=== PATIENT | female | born 1965 | race Caucasian/White ===

== ENCOUNTER → 2016-06-19 | Outpatient (REF) | payer BC | LOC: M LAB REF 20:09 | PROVIDERS: ATTEND Physician Assistant Medical | DX: N39.0 Urinary tract infection, site not specified (principal) ==

== ENCOUNTER → 2016-10-12 | Outpatient (CLI) | payer BC ==
--- NOTE | 2016-10-12 14:22 | REP ---
HIDA SCAN WITH GALLBLADDER EJECTION FRACTION: Following the intravenous administration of 6 mCi of technetium-99m mebrofenin, multiple images of the right upper quadrant are performed for 60 minutes. The gallbladder is visualized at 10 minutes postinjection. There is biliary to bowel transit seen at about 45 minutes postinjection with no scintigraphic evidence of cholecystitis. At the 1 hour ramon 8 ounces of Ensure Enlive was ingested and further imaging performed for 1 hour. Gallbladder ejection fraction is calculated to be 57% which is normal. IMPRESSION: No scintigraphic evidence of cholecystitis. Normal gallbladder ejection fraction. Signed by Galen Banerjee MD 10/12/2016 05:14 P
== END ==
LOC: M RAD 07:44
PROVIDERS: ATTEND Internal Medicine Cardiovascular Disease
DX: R10.11 Right upper quadrant pain (principal)

== ENCOUNTER → 2017-01-02 | Outpatient (CLI) | payer BC ==
[~2017-01-02] MED LIST: E-Z-PAQUE 96% w/w SUSP 176GM BTL As Ordered ONE
--- NOTE | 2017-01-02 16:18 | REP ---
Small bowel follow-through The procedure was performed under the direct supervision of Dr. Shah. The images were reviewed with Dr. Shah. The printing services coordinator film shows no organomegaly or pathological masses. The intestinal gas pattern is nonspecific. There is residual barium in the appendix from previous GI study. The patient is status post right L-5 lumbar laminectomy. Liquid barium was administered and the barium column was followed through the small bowel to the level of the terminal ileum. Small bowel transit time is approximately 15 minutes. During fluoroscopy gentle palpation shows all loops are freely movable and pliable. There are no fixed or angulated loops. The small bowel mucosal pattern is normal in course and caliber. There is no transition to suggest a partial small bowel obstruction. Spot filming of the terminal ileum shows it to be unremarkable. Impression: Small bowel follow-through examination within normal limits. 1 minutes and 3 seconds of fluoro time was utilized for this procedure. Reviewed by ELBA Springer 01/02/2017 03:28 PSigned by Kvng Shah MD 01/02/2017 04:08 P
== END ==
LOC: M RAD 08:22
PROVIDERS: ATTEND Physician Assistant
DX: R14.0 Abdominal distension (gaseous) (principal); R11.0 Nausea; R10.33 Periumbilical pain; R10.84 Generalized abdominal pain; K21.9 Gastro-esophageal reflux disease without esophagitis; R19.4 Change in bowel habit

== ENCOUNTER → 2017-02-08 | Outpatient (REF) | payer BC | LOC: M LAB REF 14:09 | PROVIDERS: ATTEND Physician Assistant | DX: J02.9 Acute pharyngitis, unspecified (principal) ==

== ENCOUNTER → 2017-03-08 | Outpatient (REF) | payer BC ==
[2017-03-08 14:02] LABS: MEAN CORPUSCULAR HEMOGLOBIN 29.7 pg (27.0-33.0); MEAN CORPUSCULAR HGB CONC 33.2 g/dl (32.0-36.5); MEAN CORPUSCULAR VOLUME 89.7 fl (80.0-96.0); PLATELET COUNT, AUTOMATED 248 10^3/uL (150-450); RED CELL DISTRIBUTION WIDTH 11.6 % (11.5-14.5)
[2017-03-08 14:38] LABS: ALBUMIN 3.6 GM/DL (3.2-5.2); ALBUMIN/GLOBULIN RATIO 1.03 (1.00-1.93); ALKALINE PHOSPHATASE 48 U/L (45-117); ALT/SGPT 19 U/L (12-78); ANION GAP 6 MEQ/L (8-16); AST/SGOT 12 U/L (7-37); BILIRUBIN,TOTAL 0.4 MG/DL (0.2-1.0); BLOOD UREA NITROGEN 18 MG/DL (7-18); CARBON DIOXIDE LEVEL 31 MEQ/L (21-32); CHLORIDE LEVEL 104 MEQ/L (98-107); CREATININE FOR GFR 0.71 MG/DL (0.55-1.02); GLOMERULAR FILTRATION RATE > 60.0 (>58); POTASSIUM SERUM 4.9 MEQ/L (3.5-5.1); SODIUM LEVEL 141 MEQ/L (136-145); TOTAL PROTEIN 7.1 GM/DL (6.4-8.2)
[2017-03-08 15:09] LABS: ESTRADIOL 34.4 PG/ML; LUTEINIZING HORMONE 32.9 mIU/mL; PROGESTERONE < 0.2 NG/ML
[2017-03-08 15:10] LABS: FOLLICLE STIMULATING HORMONE 54.5 mIU/mL
[2017-03-09 09:09] LABS: GLUCOSE, FASTING 70 MG/DL (70-105); WHITE BLOOD COUNT 4.9 10^3/uL (4.0-10.0)
[2017-03-12 14:25] LABS: ESTRONE SERUM 167 pg/mL (.)
== END ==
LOC: M LAB REF 13:23
PROVIDERS: ATTEND Obstetrics & Gynecology
DX: N95.1 Menopausal and female climacteric states (principal)

== ENCOUNTER 2017-03-30 07:12 | Day surgery (SDC) | payer BC ==
[~2017-03-30] VITALS: Ht 170.2 cm; Wt 59.9 kg
[~2017-03-30 07:12] MED LIST changes: -E-Z-PAQUE 96% w/w SUSP 176GM BTL As Ordered ONE; +LR 1,000 ML IV ONE; +ONDA4TAB6 PO
[2017-03-30] MEDS ORDERED: LIDOCAINE 2% INJ 100 MG/5 ML SDV (FOR ANES.) As Ordered ONE (08:12)
[2017-03-30] MEDS ORDERED: PROPOFOL 200 MG/20 ML VIAL As Ordered ONE (08:12)
[2017-03-30] MEDS ORDERED: fentaNYL 250 MCG/5 ML INJECTION (J3010) As Ordered ONE (08:12)
[2017-03-30] MEDS ORDERED: ROCURONIUM BROMIDE 50 MG/5 ML VIAL As Ordered ONE (08:12)
[2017-03-30] MEDS ORDERED: MIDAZOLAM INJ 2 MG/2 ML VIAL (J2250) As Ordered ONE (08:13)
[2017-03-30] MEDS ORDERED: dexameTHASONE 4 MG/ML 1ML VIAL (J1100) As Ordered ONE (08:40)
[2017-03-30] MEDS ORDERED: BUPIVACAINE/EPIN 0.5% 30 ML VIAL As Ordered ONE (08:41)
[2017-03-30] MEDS ORDERED: ONDANSETRON 4MG/2ML VIAL (J2405) As Ordered ONE (08:53)
[2017-03-30] MEDS ORDERED: HYDROmorphone HCL 1 MG/ML SYRINGE (J1170) As Ordered ONE (09:33)
[2017-03-30] MEDS: HYDROmorphone HCL 1 MG/ML SYRINGE (J1170) IV PRN ×5 (09:36→09:55)
[2017-03-30] MEDS ORDERED: KETOROLAC 30 MG/ML VIAL (J1885) As Ordered ONE (09:37)
[2017-03-30] MEDS ORDERED: LR 1,000 ML IV SCH (09:45)
[2017-03-30] MEDS ORDERED: ONDANSETRON 4MG/2ML VIAL (J2405) IV PRN (09:45)
[2017-03-30] MEDS ORDERED: fentaNYL 100 MCG/2 ML INJECTION (J3010) As Ordered ONE (09:45)
[2017-03-30] MEDS: fentaNYL 100 MCG/2 ML INJECTION (J3010) IV PRN ×4 (09:46→10:27)
[2017-03-30] MEDS ORDERED: MEPERIDINE INJ 25 MG/ML VIAL (J2175) As Ordered ONE (09:52)
[2017-03-30] MEDS: MEPERIDINE INJ 25 MG/ML VIAL (J2175) IV PRN ×2 (09:54→10:03)
[2017-03-30] MEDS ORDERED: NORCO, ANEXSIA 5/325MG TABLET (HYDROcodone/ACETAMINOPHEN) PO PRN (10:00)
[2017-03-30] MEDS ORDERED: KETOROLAC 30 MG/ML VIAL (J1885) IV PRN (10:00)
[2017-03-30] MEDS ORDERED: NEOSTIGMINE 10 MG/10 ML VIAL (J2710) As Ordered ONE (10:07)
[2017-03-30] MEDS ORDERED: GLYCOPYRROLATE INJ 0.2 MG/ML 2 ML VIAL As Ordered ONE (10:07)
[2017-03-30] MEDS: PERCOCET 5MG/325MG TAB PO PRN ×2 (10:20→10:56)
[2017-03-30] MEDS ORDERED: PERCOCET 5MG/325MG TAB As Ordered ONE (10:51)
[2017-03-30 16:46] VITALS: BP 122/77
--- NOTE | 2017-04-02 07:10 | RO ---
DATE OF PROCEDURE: 03/30/2017 PREOPERATIVE DIAGNOSIS: Abdominal pain. POSTOPERATIVE DIAGNOSIS: Incarcerated umbilical hernia. PROCEDURE: Diagnostic laparoscopy with laparoscopic repair of incarcerated umbilical hernia. SURGEON: Galen Crowder DO [employer]ER: None. ANESTHESIA: General. ESTIMATED BLOOD LOSS: 5 mL. COMPLICATIONS: None. INDICATIONS FOR PROCEDURE: The patient is a 51-year-old female who has had persistent abdominal pain for over 6 months, mainly periumbilically radiating outwards. She has had extensive workup with CT, MRI, MRA, upper and lower endoscopy and everything has been negative. She came to me for further evaluation. Recommendation was proceed with diagnostic laparoscopy, possible laparotomy. Risks and benefits of the procedure not limited to, but including bleeding, infection, hernia formation, damage to surrounding structures, and need for further surgery were discussed in detail with the patient. Informed consent was obtained and the procedure was planned. PROCEDURE: The patient was brought back to operating room 3. After sufficient sedation, the abdomen was sterilely prepped and draped. Next, a time out was done to confirm proper patient and proper procedure. Following that, a 5 mm incision was made in left lower quadrant, a Veress needle inserted and the abdomen was insufflated to 15 mmHg. Next, Veress needle was removed and 5 mm OptiView port was used to gain access to the abdomen. Once the abdomen was entered, the camera was inserted and the entire abdomen was examined. There were no signs of any adhesions, masses, or injury of any sort. Pictures were taken in all four quadrants. Next, another 5 mm port was placed in the left lower quadrant and a grasper was inserted. The abdomen was carefully examined again. The omentum was elevated up. There were no signs of any masses or anything below it. There was some scarring visible in the anterior abdominal wall at the level of the umbilicus with a little bit of preperitoneal fat overlying the area. After careful palpation, it appeared that there could potentially be a tiny hernia there, so the peritoneum was carefully incised in this area and the preperitoneal fat was mobilized out of the way. After doing so, this did reveal a very small, less than 5 mm, umbilical hernia with some incarcerated preperitoneal fat within it. This was all removed. After doing so, a 9 cm round Parietex mesh was placed over top of it, tacked in place with SecureStrap tacks, thus ending procedure. No transfascial sutures were placed. At the end of the procedure, the abdomen desufflated. Skin incisions were closed with #4-0 Vicryl subcuticular sutures. The abdomen cleaned and dried. Steri-Strips, 4x4 and tape were applied thus ending procedure.
== END 2017-03-30 17:00 | disposition home or self-care (01) ==
LOC: M SDC 07:12
PROVIDERS: ATTEND Surgery
DX: K42.0 Umbilical hernia with obstruction, without gangrene (principal); E03.9 Hypothyroidism, unspecified; R06.02 Shortness of breath; Z88.6 Allergy status to analgesic agent; Z91.040 Latex allergy status; Z79.899 Other long term (current) drug therapy; Z90.710 Acquired absence of both cervix and uterus
CPT/HCPCS: 49653; C1781; J1100; J1170; J1885; J2175; J2250; J2405; J2710; J3010

== ENCOUNTER → 2017-04-13 | Outpatient (REF) | payer BC ==
[~2017-04-13] MED LIST changes: -LR 1,000 ML IV ONE
== END ==
LOC: M LAB REF 13:04
PROVIDERS: ATTEND Physician Assistant Medical
DX: R30.0 Dysuria (principal)

== ENCOUNTER → 2017-06-11 | Outpatient (REF) | payer BC ==
[2017-06-13 08:07] LABS: HSV TYPE I IgG SPECIFIC <0.91 index (0.00-0.90); HSV TYPE II IgG SPECIFIC >23.60 index (0.00-0.90)
[2017-06-16 00:06] LABS: HSV IgM TYPES 1&2 1.69 Ratio (0.00-0.90)
== END ==
LOC: M LAB REF 17:12
DX: N76.0 Acute vaginitis (principal)
CPT/HCPCS: 86694; 86695

== ENCOUNTER → 2017-06-22 | Outpatient (CLI) | payer BC | LOC: M RAD 07:23 | DX: K42.0 Umbilical hernia with obstruction, without gangrene (principal); S39.011A Strain of muscle, fascia and tendon of abdomen, initial encounter; X58.XXXA Exposure to other specified factors, initial encounter; Y92.89 Other specified places as the place of occurrence of the external cause | CPT/HCPCS: 76705 ==

== ENCOUNTER → 2017-07-12 | Outpatient (CLI) | payer BC ==
[~2017-07-12] MED LIST changes: +GLUCAGON FOR INJ 1 MG VIAL (J1610) As Ordered; +ISOVUE-370 76% 100ML VIAL (Q9967) As Ordered; -ONDA4TAB6 PO; +VoLumen 0.1% SUSPENSION 450ML BOTTLE As Ordered
== END ==
LOC: M RAD 07:46
DX: S39.011A Strain of muscle, fascia and tendon of abdomen, initial encounter (principal); Z98.890 Other specified postprocedural states; M43.07 Spondylolysis, lumbosacral region
CPT/HCPCS: Q9967

== ENCOUNTER → 2017-11-07 | Outpatient (REF) | payer BC ==
[2017-11-07 13:17] LABS: AMORPHOUS SEDIMENT SMALL (NEGATIVE); APPEARANCE, URINE CLOUDY (CLEAR); BACTERIA, URINE AUTO 1+ (NEGATIVE); BILIRUBIN, URINE AUTO NEGATIVE (NEGATIVE); BLOOD, URINE BLOOD NEGATIVE (NEGATIVE); COLOR, URINE YELLOW (YELLOW); GLUCOSE, URINE (UA) AUTO NEGATIVE (NEGATIVE); KETONE, URINE AUTO NEGATIVE (NEGATIVE); LEUKOCYTE ESTERASE, URINE AUTO NEGATIVE (NEGATIVE); NITRITE, URINE AUTO NEGATIVE (NEGATIVE); PROTEIN, URINE AUTO NEGATIVE (NEGATIVE); RBC, URINE AUTO 1 /HPF (0-3); SPECIFIC GRAVITY URINE AUTO 1.011 (1.002-1.035); SQUAMOUS EPITHELIAL CELL UR AU 0 /HPF (0-6); UROBILINOGEN, URINE AUTO 0.2 mg/dL (0.0-2.0); WBC, URINE AUTO 0 /HPF (0-3)
== END ==
LOC: M SMT 13:00
DX: R35.0 Frequency of micturition (principal)
CPT/HCPCS: 81001

== ENCOUNTER 2018-07-18 08:00 | Outpatient (RCR) | payer BC ==
[~2018-07-18 08:00] MED LIST changes: -GLUCAGON FOR INJ 1 MG VIAL (J1610) As Ordered; -ISOVUE-370 76% 100ML VIAL (Q9967) As Ordered; +ONDA4TAB6 PO; -VoLumen 0.1% SUSPENSION 450ML BOTTLE As Ordered
== END 2018-07-21 ==
LOC: M PT 08:00
PROVIDERS: ATTEND Orthopaedic Surgery Orthopaedic Surgery of the Spine
DX: R51 Headache (principal); M54.2 Cervicalgia

== ENCOUNTER 2018-08-14 08:00 | Outpatient (RCR) | payer BC | END 2018-08-20 | LOC: M PT 08:00 | PROVIDERS: ATTEND Orthopaedic Surgery Orthopaedic Surgery of the Spine | DX: R51 Headache (principal); M54.2 Cervicalgia ==

== ENCOUNTER → 2018-11-18 | Outpatient (CLI) | payer BC ==
--- NOTE | 2018-11-18 11:15 | REP ---
Clinical: Abdominal pain. Technique: Supine and upright views of the abdomen and pelvis with upright view of the chest. Findings: Frontal view of the chest is unremarkable. No free air below diaphragm to suspect pneumoperitoneum. Supine upright views of the abdomen and pelvis demonstrate nonspecific bowel gas pattern. No organomegaly. No abnormal calcifications. Incidental phleboliths noted in the pelvis. Skeletal structures demonstrate degenerative changes involving the lower lumbar spine. Impression: Nonspecific bowel gas pattern. Electronically Signed by Gunnar Ramires MD 11/18/2018 11:07 A
== END ==
LOC: M WUC 10:46
PROVIDERS: ATTEND Internal Medicine
DX: R10.9 Unspecified abdominal pain (principal)

== ENCOUNTER → 2019-01-04 | Outpatient (REF) | payer BC | LOC: M LAB 09:55 | PROVIDERS: ATTEND Physician Assistant | DX: R10.9 Unspecified abdominal pain (principal) ==

== ENCOUNTER → 2019-01-22 | Outpatient (REF) | payer BC ==
[2019-01-22 22:37] LABS: APPEARANCE, URINE CLEAR (CLEAR); BACTERIA, URINE AUTO 1+ (NEGATIVE); BILIRUBIN, URINE AUTO NEGATIVE (NEGATIVE); BLOOD, URINE BLOOD NEGATIVE (NEGATIVE); COLOR, URINE YELLOW (YELLOW); GLUCOSE, URINE (UA) AUTO NEGATIVE (NEGATIVE); KETONE, URINE AUTO NEGATIVE (NEGATIVE); LEUKOCYTE ESTERASE, URINE AUTO NEGATIVE (NEGATIVE); MUCUS, URINE SMALL (NEGATIVE); NITRITE, URINE AUTO NEGATIVE (NEGATIVE); PROTEIN, URINE AUTO NEGATIVE (NEGATIVE); RBC, URINE AUTO 0 /HPF (0-3); SPECIFIC GRAVITY URINE AUTO 1.021 (1.002-1.035); SQUAMOUS EPITHELIAL CELL UR AU 4 /HPF (0-6); UROBILINOGEN, URINE AUTO 0.2 mg/dL (0.0-2.0); WBC, URINE AUTO 0 /HPF (0-3)
== END ==
LOC: M LAB REF 12:40
PROVIDERS: ATTEND Physician Assistant
DX: N39.0 Urinary tract infection, site not specified (principal)

== ENCOUNTER → 2019-02-12 | Outpatient (CLI) | payer BC ==
[~2019-02-12] MED LIST changes: +PROHANCE 279.3MG/ML 15ML VIAL (A9576) As Ordered ONE
--- NOTE | 2019-02-13 15:26 | REP ---
MRCP: Multiple sequences obtained in the axial and coronal planes with MIP reconstruction images. Correlation made with prior MRI from [facility] 03/30/2016 as well as MRI of the pancreas performed the same day. The gallbladder demonstrates no filling defect or gallbladder wall edema. There is no intrahepatic or extrahepatic biliary dilatation. The common bile duct is normal in caliber with a maximum diameter of 4 mm. There is no evidence of choledocholithiasis or stricture. Pancreatic duct is normal in caliber. Incidental note is made of subcentimeter cyst in the left lobe of the liver just above the confluence of the hepatic veins. Subcentimeter cyst in the body of the pancreas is also seen. IMPRESSION: No biliary abnormality. Electronically Signed by Galen Banerjee MD 02/15/2019 10:57 A
--- NOTE | 2019-02-13 15:40 | REP ---
MRI PANCREAS WITH AND WITHOUT CONTRAST: HISTORY: Pancreatic abnormality. COMPARISON: [facility] 07/12/2017 and MRI [facility] 03/30/2016. Other CT examinations are also available for comparison dating back to 08/24/2009. There is an oval cyst seen in the body of the pancreas. It measures approximately 8 x 6 x 9 mm. On the prior MRI of 03/30/2016 it measured approximately 5 x 5 x 7 mm. It is therefore minimally increased in size. There does appear to be a thin internal septation, but this does not enhance. There is no associated enhancement of any portion of the cyst and no internal solid component is seen. There is no associated pancreatic ductal dilatation. There is no definite communication with the pancreatic duct. No other pancreatic cyst is seen. Gallbladder is grossly unremarkable with no filling defect. There is no intrahepatic or extrahepatic biliary dilatation. There is a subcentimeter cyst in the left lobe of the liver just above the confluence of the hepatic veins. A subcentimeter cyst is seen in the right kidney. I see no adenopathy or free fluid in the visualized abdomen. IMPRESSION: Slight increase in size of cyst in the body of the pancreas since 03/30/16 as discussed in detail above. There is a thin internal nonenhancing septation with no solid or enhancing components. There is no associated pancreatic ductal dilatation. No other pancreatic cyst is seen. The findings are not currently worrisome and I would recommend followup MRI in one year. Electronically Signed by Galen Banerjee MD 02/15/2019 10:59 A
== END ==
LOC: M RAD 07:45
PROVIDERS: ATTEND Internal Medicine
DX: Q45.3 Other congenital malformations of pancreas and pancreatic duct (principal); K86.2 Cyst of pancreas; K76.89 Other specified diseases of liver
CPT/HCPCS: 74181; 74183; A9576

== ENCOUNTER → 2019-05-31 | Outpatient (REF) | payer BC ==
[~2019-05-31] MED LIST changes: -PROHANCE 279.3MG/ML 15ML VIAL (A9576) As Ordered ONE
[2019-05-31 20:01] LABS: APPEARANCE, URINE CLEAR (CLEAR); BACTERIA, URINE AUTO NEGATIVE (NEGATIVE); BILIRUBIN, URINE AUTO NEGATIVE (NEGATIVE); BLOOD, URINE BLOOD NEGATIVE (NEGATIVE); COLOR, URINE YELLOW (YELLOW); GLUCOSE, URINE (UA) AUTO NEGATIVE (NEGATIVE); KETONE, URINE AUTO NEGATIVE (NEGATIVE); LEUKOCYTE ESTERASE, URINE AUTO NEGATIVE (NEGATIVE); MUCUS, URINE SMALL (NEGATIVE); NITRITE, URINE AUTO NEGATIVE (NEGATIVE); PROTEIN, URINE AUTO NEGATIVE (NEGATIVE); RBC, URINE AUTO 1 /HPF (0-3); SQUAMOUS EPITHELIAL CELL UR AU 1 /HPF (0-6); UROBILINOGEN, URINE AUTO 0.2 mg/dL (0.0-2.0); WBC, URINE AUTO 0 /HPF (0-3)
== END ==
LOC: M LAB REF 19:42
PROVIDERS: ATTEND Physician Assistant Medical
DX: N39.0 Urinary tract infection, site not specified (principal)

== ENCOUNTER → 2019-06-24 | Outpatient (REF) | payer BC ==
[2019-06-24 20:20] LABS: INFLUENZA A AMPLIFICATION NEGATIVE (NEGATIVE); INFLUENZA B AMPLIFICATION NEGATIVE (NEGATIVE)
== END ==
LOC: M LAB REF 09:43
PROVIDERS: ATTEND Physician Assistant
DX: J11.1 Influenza due to unidentified influenza virus with other respiratory manifestations (principal)

== ENCOUNTER → 2019-11-18 | Outpatient (CLI) | payer BC ==
[2019-12-26 15:22] LABS: TESTOSTERONE FREE (DIRECT) See Separate Report PG/ML; TESTOSTERONE TOTAL FOR T&D See Separate Report NG/DL
== END ==
LOC: M LAB 10:43
PROVIDERS: ATTEND Obstetrics & Gynecology
DX: N95.1 Menopausal and female climacteric states (principal); E34.9 Endocrine disorder, unspecified; F52.0 Hypoactive sexual desire disorder

== ENCOUNTER → 2019-12-24 | Outpatient (CLI) | payer BC ==
--- NOTE | 2020-01-20 13:14 | REP ---
LIMITED ABDOMINAL ULTRASOUND CLINICAL: Periumbilical pain. TECHNIQUE: Real-time linder scale and color Doppler evaluation using curved array transducer. FINDINGS: Liver is normal in contour, size, and echogenicity without focal hepatic lesion identified. The pancreas demonstrates an 8.5 mm cyst in the body of the pancreas. The gallbladder appears partially contracted without obvious gallstones or wall thickening. No pericholecystic fluid or sonographic Laona sign. No biliary ductal dilatation is appreciated and the bile common bile duct measures 2.4 mm in diameter. The right kidney is normal in reniform shape without hydronephrosis and measures 10.1 x 4.9 x 4.8 cm. Further evaluation of the periumbilical region demonstrates no obvious hernia or abnormality. IMPRESSION: * An 8.5 mm pancreatic cyst unchanged compared to prior MRI. * Contracted gallbladder without evidence for pathology by sonogram. * Periumbilical region appears normal. MTDD
== END ==
LOC: M RAD 06:09
PROVIDERS: ATTEND Surgery
DX: R10.33 Periumbilical pain (principal); K86.2 Cyst of pancreas

== ENCOUNTER → 2020-02-19 | Outpatient (CLI) | payer BC ==
[~2020-02-19] MED LIST changes: +E-Z-GAS II EFFERVESCENT PACKET (SODIUM BICARB./CITRIC ACID/SIMETHICONE) As Ordered ONE; +E-Z-HD 98% w/w 340GM SUSP BTL As Ordered ONE; +E-Z-PAQUE 96% w/w SUSP 176GM BTL As Ordered ONE
--- NOTE | 2020-02-19 17:35 | REP ---
INDICATION: GASTRO-ESOPHAGEAL REFLUX DISEASE. COMPARISON: None. TECHNIQUE: This procedure was performed under the direct supervision of Dr. Banerjee. Images were reviewed with Dr. Banerjee. A single view PA chest x-ray was submitted as a story editor film. The superior mediastinal structures are midline. Heart size is within normal limits. The lungs are clear. Liquid barium and gas producing granules were given in the erect position as well as liquid barium in the prone oblique positions in order to perform a double contrast esophagram examination. FINDINGS: The oral and pharyngeal stages of deglutition are unremarkable. Esophageal transport is prompt and efficient and there is no esophagitis, stricture, mucosal ring or hiatal hernia. There is gastroesophageal reflux demonstrated to below the level of the lokesh. IMPRESSION: There is gastroesophageal reflux demonstrated to below the level of the lokesh. Otherwise, unremarkable double-contrast esophagram examination. 0.8 minutes of fluoro time was utilized for this procedure. <Electronically signed by Mark Moon > 02/19/20 1628 <Electronically signed by Galen Banerjee > 02/19/20 [id number]
--- NOTE | 2020-02-21 13:35 | REP ---
INDICATION: PERIUMBIOLICAL PAIN COMPARISON: 07/12/2017 TECHNIQUE: Axial noncontrast images from the lung bases to the pubic symphysis with coronal and sagittal reformations. This CT examination was performed using the following dose reduction techniques: Automated exposure control, adjustment of mA and/or kv according to the patient's size, and use of iterative reconstruction technique. FINDINGS: Lung bases are clear. Visualized heart and pericardium normal. Liver, spleen, pancreas, gallbladder, bilateral adrenal glands and kidneys are normal. The enteric system is unremarkable and without obstruction or acute inflammatory process. Normal terminal ileum and appendix identified in the right lower quadrant. Pelvis demonstrates normal bladder and evidence for prior hysterectomy. The periumbilical region appears relatively normal. There is no evidence for hernia. No ascites. No free air. No adenopathy. No focal inflammatory stranding. Abdominal aorta without aneurysm. Musculoskeletal structures are intact and without acute osseous abnormality. IMPRESSION: No acute abdominopelvic pathology appreciated. No obvious periumbilical abnormality noted. <Electronically signed by Gunnar Ramires > 02/21/20 1851
== END ==
LOC: M RAD 07:48
PROVIDERS: ATTEND Surgery
DX: R10.33 Periumbilical pain (principal); K21.9 Gastro-esophageal reflux disease without esophagitis

== ENCOUNTER → 2020-03-12 | Outpatient (CLI) | payer BC ==
[~2020-03-12] MED LIST changes: +BIOIDENTICAL; -E-Z-GAS II EFFERVESCENT PACKET (SODIUM BICARB./CITRIC ACID/SIMETHICONE) As Ordered ONE; -E-Z-HD 98% w/w 340GM SUSP BTL As Ordered ONE; -E-Z-PAQUE 96% w/w SUSP 176GM BTL As Ordered ONE; +EQL50TAB2 PO; +OMEP-221; +SYNT25TA
== END ==
LOC: M LABSMTC 11:19
PROVIDERS: ATTEND Anesthesiology
DX: Z01.812 Encounter for preprocedural laboratory examination (principal); Z20.828 Contact with and (suspected) exposure to other viral communicable diseases

== ENCOUNTER 2020-03-17 09:24 | Day surgery (SDC) | payer BC ==
[~2020-03-17] VITALS: Ht 170.2 cm; Wt 59.4 kg
[~2020-03-17 09:24] MED LIST changes: +NS 1,000 ML IV ONE
[2020-03-17] MEDS ORDERED: fentaNYL 100 MCG/2 ML INJECTION (J3010) As Ordered ONE (11:13)
[2020-03-17] MEDS ORDERED: propofoL 200 MG/20 ML VIAL As Ordered ONE (11:13)
--- NOTE | 2020-03-17 11:45 | ROOR ---
Patient Name: Joaquín East Procedure Date: 03/17/2020 11:27 AM Date of : 1965 Age: 54 Room: [facility] Gender: Female Note Status: Finalized Procedure: Upper GI endoscopy Indications: Heartburn Providers: DO Mary Hall MD: KATEY AG Requesting Provider: Medicines: Propofol per Anesthesia Complications: No immediate complications. Procedure: Pre-Anesthesia Assessment: - Prior to the procedure, a History and Physical was performed, and patient medications and allergies were reviewed. The patient is competent. The risks and benefits of the procedure and the sedation options and risks were discussed with the patient. All questions were answered and informed consent was obtained. Patient identification and proposed procedure were verified by the physician, the nurse, the plastic molder and the monitor technician in the endoscopy suite. Mental Status Examination: alert and oriented. Airway Examination: normal oropharyngeal airway and neck mobility. Respiratory Examination: clear to auscultation. CV Examination: normal. Prophylactic Antibiotics: The patient does not require prophylactic antibiotics. Prior Anticoagulants: The patient has taken no previous anticoagulant or antiplatelet agents. ASA Grade Assessment: II - A patient with mild systemic disease. After reviewing the risks and benefits, the patient was deemed in satisfactory condition to undergo the procedure. The anesthesia plan was to use monitored anesthesia care (MAC). Immediately prior to administration of medications, the patient was re-assessed for adequacy to receive sedatives. The heart rate, respiratory rate, oxygen saturations, blood pressure, adequacy of pulmonary ventilation, and response to care were monitored throughout the procedure. The physical status of the patient was re-assessed after the procedure. The Endoscope was introduced through the mouth, and advanced to the second part of duodenum. The upper GI endoscopy was accomplished without difficulty. The patient tolerated the procedure well. Findings: Localized mild inflammation characterized by erosions, erythema and friability was found in the duodenal bulb. Localized mild inflammation characterized by congestion (edema), erythema, friability and linear erosions was found in the prepyloric region of the stomach. Biopsies were taken with a cold forceps for Helicobacter pylori testing. Estimated blood loss was minimal. Two superficial gastric ulcers with no stigmata of bleeding were found in the prepyloric region of the stomach. The largest lesion was 1 mm in largest dimension. Estimated blood loss was minimal. Impression: - Duodenitis. - Gastritis. Biopsied. - Gastric ulcers with no stigmata of bleeding. Recommendation: - Patient has a contact number available for emergencies. The signs and symptoms of potential delayed complications were discussed with the patient. Return to normal activities tomorrow. Written discharge instructions were provided to the patient. - Await pathology results. - Telephone my office for pathology results in 1 week. Procedure Code(s): --- Professional --- 06381, Esophagogastroduodenoscopy, flexible, transoral; with biopsy, single or multiple Diagnosis Code(s): --- Professional --- K29.80, Duodenitis without bleeding K29.70, Gastritis, unspecified, without bleeding K25.9, Gastric ulcer, unspecified as acute or chronic, without hemorrhage or perforation R12, Heartburn CPT copyright 2019 [employer]. All rights reserved. The codes documented in this report are preliminary and upon industrial safety and health manager review may be revised to meet current compliance requirements. Galen Crowder DO 03/17/2020 11:44:20 AM Electronically signed by Galen Crowder DO Number of Addenda: 0 Note Initiated On: 03/17/2020 11:27 AM Estimated Blood Loss: Estimated blood loss was minimal.
[2020-03-17 12:21] VITALS: BP 132/76
== END 2020-03-17 12:55 | disposition home or self-care (01) ==
LOC: M OPP 09:24
PROVIDERS: ATTEND Surgery
DX: K29.80 Duodenitis without bleeding (principal); K29.70 Gastritis, unspecified, without bleeding; K25.9 Gastric ulcer, unspecified as acute or chronic, without hemorrhage or perforation; R12 Heartburn; K21.9 Gastro-esophageal reflux disease without esophagitis; E03.9 Hypothyroidism, unspecified; Z79.899 Other long term (current) drug therapy; Z88.6 Allergy status to analgesic agent; Z91.040 Latex allergy status; Z87.891 Personal history of nicotine dependence
CPT/HCPCS: 43239; 88305; J3010

== ENCOUNTER → 2020-04-01 | Outpatient (CLI) | payer BC ==
[~2020-04-01] MED LIST changes: -NS 1,000 ML IV ONE
== END ==
LOC: M LAB 11:03
PROVIDERS: ATTEND Surgery
DX: K21.9 Gastro-esophageal reflux disease without esophagitis (principal)

== ENCOUNTER → 2021-08-25 | Outpatient (CLI) | payer BC ==
[~2021-08-25] MED LIST changes: -OMEP-221; +OMEP40CA5
== END ==
LOC: M WHC 15:14
PROVIDERS: ATTEND Physician Assistant
DX: R22.1 Localized swelling, mass and lump, neck (principal); E03.9 Hypothyroidism, unspecified

== ENCOUNTER → 2021-09-06 | Outpatient (CLI) | payer BC ==
[2021-09-06 10:56] LABS: HEMATOCRIT 42.8 % (36.0-47.0); HEMOGLOBIN 14.6 g/dl (12.0-15.5); MEAN CORPUSCULAR HEMOGLOBIN 31.7 pg (27.0-33.0); MEAN CORPUSCULAR HGB CONC 34.1 g/dl (32.0-36.5); MEAN CORPUSCULAR VOLUME 92.8 fl (80.0-96.0); PLATELET COUNT, AUTOMATED 277 10^3/uL (150-450); RED BLOOD COUNT 4.61 10^6/uL (4.00-5.40); WHITE BLOOD COUNT 7.3 10^3/uL (4.0-10.0)
[2021-09-06 11:06] LABS: ALT/SGPT 25 U/L (12-78); BLOOD UREA NITROGEN 18 MG/DL (7-18); CALCIUM LEVEL 9.5 MG/DL (8.5-10.1); CARBON DIOXIDE LEVEL 29 MEQ/L (21-32); CHLORIDE LEVEL 105 MEQ/L (98-107); CREATININE FOR GFR 0.85 MG/DL (0.55-1.30); GLOMERULAR FILTRATION RATE > 60.0 (>51); GLUCOSE, FASTING 82 MG/DL (70-100); POTASSIUM SERUM 4.9 MEQ/L (3.5-5.1); SODIUM LEVEL 139 MEQ/L (136-145)
[2021-09-06 11:07] LABS: ALBUMIN 3.9 GM/DL (3.2-5.2); BILIRUBIN,TOTAL 0.5 MG/DL (0.2-1.0); FREE T4 0.76 NG/DL (0.76-1.46)
== END ==
LOC: M PLALAB 09:00
PROVIDERS: ATTEND Physician Assistant
DX: R51.9 Headache, unspecified (principal)

== ENCOUNTER → 2022-10-10 | Outpatient (REF) | payer BC ==
[2022-10-10 21:33] LABS: APPEARANCE, URINE CLEAR (CLEAR); BACTERIA, URINE AUTO 1+ (NEGATIVE); BILIRUBIN, URINE AUTO NEGATIVE (NEGATIVE); BLOOD, URINE BLOOD NEGATIVE (NEGATIVE); COLOR, URINE YELLOW (YELLOW); GLUCOSE, URINE (UA) AUTO NEGATIVE (NEGATIVE); KETONE, URINE AUTO NEGATIVE (NEGATIVE); LEUKOCYTE ESTERASE, URINE AUTO NEGATIVE (NEGATIVE); MUCUS, URINE SMALL (NEGATIVE); NITRITE, URINE AUTO NEGATIVE (NEGATIVE); PROTEIN, URINE AUTO NEGATIVE (NEGATIVE); RBC, URINE AUTO 1 /HPF (0-3); SPECIFIC GRAVITY URINE AUTO 1.025 (1.002-1.035); SQUAMOUS EPITHELIAL CELL UR AU 0 /HPF (0-6); UROBILINOGEN, URINE AUTO 0.2 mg/dL (0.0-2.0); WBC, URINE AUTO 0 /HPF (0-3)
== END ==
LOC: M LAB REF 21:05
PROVIDERS: ATTEND Physician Assistant Medical
DX: N39.0 Urinary tract infection, site not specified (principal)

== ENCOUNTER → 2023-04-20 | Outpatient (REF) | payer BC ==
[2023-04-20 16:54] LABS: RSV AMPLIFICATION NEGATIVE (NEGATIVE)
== END ==
LOC: M LAB REF 16:09
PROVIDERS: ATTEND Physician Assistant
DX: B34.9 Viral infection, unspecified (principal)

== ENCOUNTER 2023-05-21 07:45 | Outpatient (RCR) | payer BC | END 2023-05-23 | LOC: M PT 07:45 | PROVIDERS: ATTEND Orthopaedic Surgery | DX: M54.50 Low back pain, unspecified (principal); S76.319A Strain of muscle, fascia and tendon of the posterior muscle group at thigh level, unspecified thigh, initial encounter; X58.XXXA Exposure to other specified factors, initial encounter; Y92.9 Unspecified place or not applicable; Y93.9 Activity, unspecified; Y99.9 Unspecified external cause status ==

== ENCOUNTER 2023-06-05 07:45 | Outpatient (RCR) | payer BC | END 2023-06-21 | LOC: M PT 07:45 | PROVIDERS: ATTEND Orthopaedic Surgery | DX: M54.50 Low back pain, unspecified (principal); S76.319A Strain of muscle, fascia and tendon of the posterior muscle group at thigh level, unspecified thigh, initial encounter; X58.XXXA Exposure to other specified factors, initial encounter; Y92.9 Unspecified place or not applicable; Y93.9 Activity, unspecified; Y99.9 Unspecified external cause status ==

== ENCOUNTER → 2023-07-19 | Outpatient (CLI) | payer BC ==
[~2023-07-19] MED LIST changes: +GASTROGRAFIN SOLUTION 30ML As Ordered ONE; +ISOVUE-370 76% 100ML VIAL As Ordered ONE
== END ==
LOC: M RAD 14:04
PROVIDERS: ATTEND Internal Medicine Gastroenterology
DX: K21.9 Gastro-esophageal reflux disease without esophagitis (principal); R10.9 Unspecified abdominal pain; R19.5 Other fecal abnormalities; Z86.010 Personal history of colon polyps
CPT/HCPCS: 74178; Q9963; Q9967

== ENCOUNTER → 2023-07-31 | Outpatient (REF) | payer BC ==
[~2023-07-31] MED LIST changes: -GASTROGRAFIN SOLUTION 30ML As Ordered ONE; -ISOVUE-370 76% 100ML VIAL As Ordered ONE
== END ==
LOC: M LAB REF 11:57
PROVIDERS: ATTEND Obstetrics & Gynecology
DX: R30.0 Dysuria (principal)

== ENCOUNTER 2023-10-16 08:30 | Outpatient (RCR) | payer BC ==
[~2023-10-16 08:30] MED LIST changes: +ONDA-282 PO; -ONDA4TAB6 PO
== END 2023-10-21 ==
LOC: M PT 08:30
PROVIDERS: ATTEND Orthopaedic Surgery
DX: M79.651 Pain in right thigh (principal)

== ENCOUNTER 2023-11-20 12:00 | Outpatient (RCR) | payer BC | END 2023-11-21 | LOC: M PT 12:00 | PROVIDERS: ATTEND Orthopaedic Surgery | DX: Z98.890 Other specified postprocedural states (principal) ==

== ENCOUNTER 2023-11-28 07:00 | Outpatient (RCR) | payer BC | END 2023-12-22 | LOC: M PT 07:00 | PROVIDERS: ATTEND Orthopaedic Surgery | DX: Z47.89 Encounter for other orthopedic aftercare (principal) ==

== ENCOUNTER → 2024-01-22 | Outpatient (CLI) | payer BC | LOC: M RAD 11:21 | PROVIDERS: ATTEND Physician Assistant | DX: R10.84 Generalized abdominal pain (principal) | CPT/HCPCS: 78264; A9541 ==

== ENCOUNTER → 2024-01-30 | Outpatient (CLI) | payer BC | LOC: M RAD 08:04 | PROVIDERS: ATTEND Physician Assistant | DX: R10.84 Generalized abdominal pain (principal) ==

== ENCOUNTER → 2024-05-30 | Outpatient (CLI) | payer BC | LOC: M RAD 11:02 | PROVIDERS: ATTEND Physician Assistant | DX: R19.00 Intra-abdominal and pelvic swelling, mass and lump, unspecified site (principal); R10.819 Abdominal tenderness, unspecified site ==

== ENCOUNTER 2025-02-12 07:45 | Outpatient (RCR) | payer BC ==
[~2025-02-12 07:45] MED LIST changes: -EQL50TAB2 PO; +VITA1TAB82 PO
== END 2025-02-20 ==
LOC: M PT 07:45
PROVIDERS: ATTEND Physician Assistant Medical
DX: M25.552 Pain in left hip (principal)

== ENCOUNTER 2025-03-12 07:45 | Outpatient (RCR) | payer BC | END 2025-03-22 | LOC: M PT 07:45 | PROVIDERS: ATTEND Physician Assistant Medical | DX: M25.552 Pain in left hip (principal) ==

== ENCOUNTER → 2025-03-18 | Outpatient (REF) | payer BC ==
[2025-03-18 12:18] LABS: APPEARANCE, URINE CLEAR (CLEAR); BACTERIA, URINE AUTO NEGATIVE (NEGATIVE); BILIRUBIN, URINE AUTO NEGATIVE (NEGATIVE); BLOOD, URINE BLOOD NEGATIVE (NEGATIVE); GLUCOSE, URINE (UA) AUTO NEGATIVE (NEGATIVE); KETONE, URINE AUTO NEGATIVE (NEGATIVE); LEUKOCYTE ESTERASE, URINE AUTO NEGATIVE (NEGATIVE); MUCUS, URINE SMALL (NEGATIVE); NITRITE, URINE AUTO NEGATIVE (NEGATIVE); PROTEIN, URINE AUTO NEGATIVE (NEGATIVE); RBC, URINE AUTO 2 /HPF (0-3); SPECIFIC GRAVITY URINE AUTO 1.019 (1.002-1.035); SQUAMOUS EPITHELIAL CELL UR AU 0 /HPF (0-6); UROBILINOGEN, URINE AUTO 0.2 mg/dL (0.0-2.0); WBC, URINE AUTO 1 /HPF (0-3)
== END ==
LOC: M LAB REF 11:34
PROVIDERS: ATTEND Physician Assistant Medical
DX: N39.0 Urinary tract infection, site not specified (principal)